=== PATIENT | female | born 1940 | race American Indian/Alaskan Native ===

== ENCOUNTER 2022-05-03 06:04 | Day surgery (SDC) | payer MEDICARE ==
[~2022-05-03 06:04] MED LIST: MIDAZOLAM 2 MG/2 ML INJ IV NR; SODIUM CHLORIDE 0.9% 1000 ML 1,000 ML IV SCH; ceFAZolin/Water 2 GM/20 ML 2 GM/20 ML SYRINGE IV NR; fentaNYL 100 MCG/2 ML INJ IV PRN
[2022-05-03] MEDS ORDERED: BACTERIOSTATIC SODIUM CHLORIDE 0.9% 30 ML VIAL INFILTRATI ONE (06:51)
[2022-05-03 07:12] LABS: Hematocrit 34.5 % (30.3-42.9); Hemoglobin 11.2 gm/dl (10.1-14.3); Mean Corpuscular HGB Conc 33 % (30-34); Mean Corpuscular Volume 93 fl (79-97); Platelet Count 185 K/mm3 (140-440); Red Blood Count 3.71 M/mm3 (3.65-5.03); Red Cell Distribution Width 14.5 % (13.2-15.2)
[2022-05-03] MEDS ORDERED: propofoL 200 MG/20 ML VIAL IV ONE (07:13)
[2022-05-03] MEDS ORDERED: SODIUM CHLORIDE 0.9% 500 ML 500 ML ONE (07:26)
[2022-05-03] MEDS ORDERED: BUPIVACAINE/PF (0.5%) 5 MG/1 ML 30 ML VIAL INFILTRATI ONE (07:26)
[2022-05-03] MEDS ORDERED: HEPARIN 10,000 UNITS/10 ML VIAL ONE (07:26)
[2022-05-03 07:30] LABS: Calcium 9.6 mg/dL (8.4-10.2)
--- NOTE | 2022-05-03 07:31 | Anesthesia Consultation ---
Anesthesia Consult and Med Hx Date of service: 05/03/22 - Airway Anesthetic Teeth Evaluation: Good ROM Head & Neck: Adequate Mental/Hyoid Distance: Adequate Mallampati Class: Class III Intubation Access Assessment: Possibly Difficult - Pulmonary Exam CTA: Yes - Cardiac Exam Cardiac Exam: RRR - Pre-Operative Health Status ASA Pre-Surgery Classification: ASA3 Proposed Anesthetic Plan: MAC Nerve Block: Supraclavicular - Pulmonary Hx Smoking: Yes (quit 30yrs ago) - Cardiovascular System Hx Hypertension: Yes (took nevibolol today ) Hx Heart Attack/AMI: No (01/2020 stress test negative and EF 45%) Hx Cardia Arrhythmia: Yes (RBBB) - Central Nervous System CVA: No - Endocrine Hx Renal Disease: Yes (CKD V; 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
--- NOTE | 2022-05-03 07:32 | Anesthesia Day of Surgery ---
Anesthesia Day of Surgery - Day of Surgery Patient Examined: Yes Patient H&P Reviewed: Yes Patient is NPO: Yes Beta Blockers: Yes (nevibolol today AM)
[2022-05-03] MEDS ORDERED: LIDOCAINE (1%) 10 MG/1 ML VIAL 20 ML MDV ONE (07:36)
[2022-05-03] MEDS ORDERED: BUPIVACAINE-EPINEPHRINE/PF 0.25%-1:200,000 (30 ML) VIAL INFILTRATI ONE (07:36)
--- NOTE | 2022-05-03 08:06 | Short Stay Summary ---
Short Stay Documentation Date of service: 05/03/22 Narrative H&P: The patient is an 81-year-old female with a history of chronic renal insufficiency who was not yet on hemodialysis however it it is anticipated that she may progress to requiring hemodialysis in the near future. She presents for evaluation of possible long-term dialysis access to avoid the placement of a permacath if she does progress to require hemodialysis. She is right-hand dominant and a bedside ultrasound demonstrated she is an adequate candidate for creation of a left brachiocephalic arteriovenous fistula. She and her family were given the risk, benefits, and alternative procedures and consented to the procedure. - History Past Medical History: arthritis, diabetes, heart failure, hypertension, hyperlipidemia, renal failure, other (Gout) Past Surgical History: cataract removal (Bilateral eyes) - Allergies and Medications Current Medications: Allergies No Known Allergies Allergy (Verified 04/27/22 15:37) Home Medications Medication Instructions Recorded Confirmed Last Taken Type Alendronate Sodium 70 mg PO DAILY 04/27/22 05/03/22 05/02/22 09:00 History Amlodipine Besylate/Valsartan 1 tab PO DAILY 04/27/22 05/03/22 05/02/22 09:00 History [Amlodipine-Valsartan 10-320 mg] Glimepiride [Amaryl] 2 mg PO DAILY 04/27/22 05/03/22 05/02/22 09:00 History Nebivolol HCl 20 mg PO DAILY 04/27/22 05/03/22 05/03/22 05:00 History Sodium Bicarbonate 650 mg PO BID 04/27/22 05/03/22 05/02/22 17:00 History calcitrioL [Rocaltrol] 0.25 mcg PO 1XW 04/27/22 05/03/22 05/02/22 09:00 History Active Medications Fentanyl (Fentanyl 100 Mcg/2 Ml Inj) 100 mcg IV ONCE PRN PRN Reason: sedation for nerve block Sodium Chloride (Nacl 0.9% 1000 Ml) 1,000 mls @ 42 mls/hr IV DIRECT DEVIN Stop: 05/03/22 23:59 Midazolam HCl (Midazolam 2 Mg/2 Ml Inj) 2 mg IV PREOP NR Stop: 05/03/22 23:59 - Physical exam General appearance: no acute distress Lungs: Normal air movement Breasts: deferred Heart: Regular rate Gastrointestinal: normal Female Genitourinary: deferred Rectal Exam: deferred Extremities: no ischemia, pulses intact (palpable radial pulses bilaterally) - Brief post op/procedure progress note Date of procedure: 05/03/22 Pre-op diagnosis: Chronic Renal Insufficiency Post-op diagnosis: same Procedure: Creation of Left Brachiocephalic Arteriovenous Fistula Anesthesia: MAC, regional Surgeon: ARJUN RIVAS Estimated blood loss: minimal Pathology: none Condition: stable - Disposition Condition at discharge: Good Disposition: 01 HOME / SELF CARE / HOMELESS Short Stay Discharge Plan Activity: other (No heavy lifting with left arm for 2 weeks. Use stress ball with left hand as often as possible.) Wound: open to air, keep clean and dry, other (Okay to wash the left arm incision with soap and water but do not soak in water for 2 weeks.) Follow up with: ARJUN RIVAS MD [Staff Physician] - 14 Days Prescriptions: HYDROcodone/APAP 5-325 [[place] 5/325] 1 each PO Q4HR PRN #30 tablet PRN Reason: Pain
[2022-05-03] MEDS ORDERED: HEPARIN 10,000 UNITS/10 ML VIAL IR ONE (09:28)
[2022-05-03] MEDS ORDERED: SODIUM CHLORIDE 0.9% 500 ML IVPB IRRIGATION ONE (09:29)
[2022-05-03] MEDS ORDERED: SODIUM CHLORIDE 0.9% IRR 1,500 ML BOTTLE IR ONE (09:29)
--- NOTE | 2022-05-03 09:41 | Operative Report ---
Operative Report Operative Report: Date of procedure: 05/03/2020 Pre-operative diagnosis: End-Stage Renal Disease Post-operative diagnosis: End-Stage Renal Disease Procedure(s): Creation of Left Brachial Artery to Cephalic Vein Arteriovenous Fistula Surgeon: Bradley Cerda MD Powerhouse Electrician Apprentice: None Anesthesia: Regional/MAC EBL: Minimal Counts: Correct Complications: None Condition: Stable Findings: Successful creation of left brachiocephalic arteriovenous fistula with palpable thrill and palpable radial pulse at the completion of the case. Specimen: None Indications: The patient is an 81-year-old female with a history of chronic renal insufficiency who is not yet on hemodialysis however it is anticipated that she may require hemodialysis in the near future. She is in need of long-term dialysis access to avoid placement of a permacath if she does progress to end- stage renal disease. She was given the risk, benefits, and alternative procedures, of creation of an arteriovenous fistula and has consented to the procedure. Description of Procedure: The patient had a regional block of the patient's left arm was performed in the preoperative area prior to being transported to the operating room. Once the regional block was performed the patient was transported to the operating room and adequate sedation was given. When the patient was sedated a timeout was performed and the patient's left arm was then prepped and draped in normal sterile fashion. A transverse incision was then made and carried down to the cephalic vein using sharp dissection. The vein was dissected out both proximally and distally and suture ligated and divided distally. I flushed the vein with heparinized saline and flow was controlled with a bulldog clamp. I then dissected out the brachial artery through this incision circumferentially both proximal and distal and controlled the artery with vessel loops. I systemically heparinized the patient with 3000 units of heparin IV and used angled DeBakey clamps to control flow through the artery. I created an arteriotomy using an 11 blade and Thompson scissors. I created an end to side anastomosis between the cephalic vein and brachial artery using a 6-0 Prolene in running fashion. Prior to completing the anastomosis I flashed the artery both proximally and distally and then flushed the anastomosis with heparinized saline to remove any debris. I then completed the anastomosis and removed all clamps allowing flow into the fistula which had an adequate thrill. I achieved hemostasis with a combination of Quick Clot and electrocautery. Once hemostasis had been achieved I closed the wound in 2 layers using a 3-0 Vicryl in a running fashion in the deep dermal layer and a 4-0 Monocryl in running fashion in the subcuticular layer. I then dressed the wound with Dermabond. The patient tolerated the procedure well. All sponge, needle, and instrument counts were correct. The patient was taken to the recovery area in stable condition.
[2022-05-03 12:38] VITALS: BP 142/61
--- NOTE | 2022-05-03 13:51 | Post Anesthesia Evaluation ---
- Post Anesthesia Evaluation Patient Participated: Yes Airway Patent: Yes Stable Respiratory Function: Yes Nausea/Vomiting: No Temp > 96.8F: Yes Pain Manageable: Yes Adequeate Hydration: Yes Anesthesia Complications: No
== END 2022-05-03 11:15 | disposition home or self-care (01) ==
LOC: OR 06:04
PROVIDERS: ATTEND Surgery Vascular Surgery
DX: I12.0 Hypertensive chronic kidney disease with stage 5 chronic kidney disease or end stage renal disease (principal); E11.22 Type 2 diabetes mellitus with diabetic chronic kidney disease; N18.6 End stage renal disease; I42.9 Cardiomyopathy, unspecified; E78.00 Pure hypercholesterolemia, unspecified; M19.90 Unspecified osteoarthritis, unspecified site; M10.9 Gout, unspecified; D64.9 Anemia, unspecified; Z98.890 Other specified postprocedural states; Z98.41 Cataract extraction status, right eye; Z98.42 Cataract extraction status, left eye; Z72.89 Other problems related to lifestyle; Z79.899 Other long term (current) drug therapy; Z87.891 Personal history of nicotine dependence
CPT/HCPCS: 36415; 36821; 64415; 80048; 82962; 85027; J0690; J1644; J2250; J3010; J3490; J7030; J7040; 64450; J2704